=== PATIENT | male | born 1950 | race Caucasian/White ===

== ENCOUNTER 2017-12-12 10:38 | Inpatient (IN) | END 2017-12-13 12:20 | disposition home or self-care (01) | DRG 483 ==

== ENCOUNTER 2019-05-25 08:46 | Inpatient (IN) | payer BC, OTHER ==
[~2019-05-25] VITALS: Ht 190.5 cm; Wt 86.4 kg
[2019-05-25] VITALS (25 sets, daily range): BP systolic 105–125; BP diastolic 63–84; PULSE 70–93; RESP 13–19; Ht 190.5 cm; Wt 86.4 kg
[~2019-05-25 08:46] MED LIST: CLON-429 PO; DICL100G37 TOP; TAMS-14 PO
[2019-05-25] MEDS: LACTATED RINGER'S 1,000 ML IV SCH (10:25)
[2019-05-25] MEDS ORDERED: MEPERIDINE 25 MG INJ IV PRN (12:00)
[2019-05-25] MEDS ORDERED: OXYCODONE/ACETAMINOPHEN (5/325) TAB PO PRN (12:00)
[2019-05-25] MEDS ORDERED: HYDROmorphONE 1 MG/5 ML IV SYRINGE IV PRN ×3 (12:00)
[2019-05-25] MEDS ORDERED: DIPHENHYDRAMINE 50 MG INJ IV PRN ×2 (12:00→15:30)
[2019-05-25] MEDS ORDERED: ONDANSETRON 4 MG INJ IV PRN ×2 (12:00→15:30)
[2019-05-25] MEDS ORDERED: FENTAnyl 50 MCG/ML VIAL IV PRN ×3 (12:00)
[2019-05-25] MEDS ORDERED: PROCHLORPERAZINE 10 MG INJ IV PRN (12:00)
[2019-05-25] MEDS ORDERED: POLYMYXIN/BACITRACIN 1L IRRIG ONE (12:20)
[2019-05-25] MEDS ORDERED: HEPARIN 1000 UNITS/ML 10 ML INJ ONE (12:20)
[2019-05-25] MEDS ORDERED: CA CHLORIDE 10% 10 ML SYRINGE ONE (12:20)
[2019-05-25] MEDS ORDERED: BUPIVACAINE 0.5%/EPI (SDV) 30 ML INJ ONE (12:20)
[2019-05-25] MEDS ORDERED: THROMBIN 5000 UNIT (RECOTHROM) VIAL ONE ×2 (12:20→14:18)
[2019-05-25] MEDS ORDERED: CLINDAMYCIN 600 MG/D5W (PMX) 50 ML IVPB SCH ×2 (12:30→15:30)
[2019-05-25] MEDS ORDERED: PROPOFOL 20 ML ONE (12:33)
[2019-05-25] MEDS ORDERED: LIDOCAINE 2% (SDV) 5 ML INJ ONE (12:33)
[2019-05-25] MEDS ORDERED: SUCCINYLCHOLINE CHLORIDE 100 MG/5 ML SYG IV ONE (12:33)
[2019-05-25] MEDS ORDERED: ROCURONIUM 50 MG INJ ONE (12:33)
[2019-05-25] MEDS ORDERED: MIDAZOLAM 1 MG/ML 2 ML INJ ONE (12:34)
[2019-05-25] MEDS ORDERED: LACTATED RINGER'S 1,000 ML IV SCH (13:00)
[2019-05-25] MEDS ORDERED: CLINDAMYCIN 900 MG (PMX) 50 ML IVPB ONE (13:00)
[2019-05-25] MEDS ORDERED: SUGAMMADEX SODIUM 200 MG/2 ML VIAL IV ONE (14:19)
[2019-05-25] MEDS ORDERED: HYDROmorphONE 2 MG/ML SYG ONE (14:30)
[2019-05-25] MEDS ORDERED: DIPHENHYDRAMINE 25 MG CAP PO PRN (15:30)
[2019-05-25] MEDS ORDERED: CYCLOBENZAPRINE 10 MG TAB PO PRN (15:30)
[2019-05-25] MEDS ORDERED: CEPASTAT LOZENGE MT PRN (15:30)
[2019-05-25] MEDS ORDERED: NALOXONE (0.4 MG/ML) INJ IV PRN (15:30)
[2019-05-25] MEDS ORDERED: BISACODYL 10 MG SUPP PR PRN (15:30)
[2019-05-25] MEDS ORDERED: AL HYDROX/MG HYDROX/SIMETH 30 ML CUP PO PRN (15:30)
[2019-05-25] MEDS ORDERED: ACETAMINOPHEN 325 MG TAB PO PRN (15:30)
[2019-05-25] MEDS ORDERED: HYDROCODONE/APAP (10/325) TAB PO PRN (15:30)
[2019-05-25] MEDS: D5W-0.45 NACL + KCL 20 MEQ 1,000 ML IV SCH (16:47)
[2019-05-25] MEDS: HYDROmorphONE 0.5 MG/0.5 ML SYG IV PRN (17:09)
[2019-05-25] MEDS ORDERED: clonAZEPAM 0.5 MG TAB PO PRN (19:00)
[2019-05-25] MEDS ORDERED: TAMSULOSIN (SR) 0.4 MG CAP PO SCH (21:00)
[2019-05-25] MEDS: DOCUSATE SODIUM 100 MG CAP PO SCH (22:08)
[2019-05-25] MEDS: CLINDAMYCIN 600 MG/D5W (PMX) 50 ML IVPB SCH (22:09)
[2019-05-25] MEDS: DOXAZOSIN 2 MG TAB PO SCH (22:09)
[2019-05-25] MEDS: ONDANSETRON 4 MG INJ IV PRN (23:33)
[2019-05-26] MEDS: D5W-0.45 NACL + KCL 20 MEQ 1,000 ML IV SCH ×2 (01:23→06:19)
[2019-05-26] MEDS: HYDROmorphONE 0.5 MG/0.5 ML SYG IV PRN (02:34)
[2019-05-26 04:31] VITALS: BP 104/71; PULSE 99; RESP 18
[2019-05-26] MEDS: CLINDAMYCIN 600 MG/D5W (PMX) 50 ML IVPB SCH ×3 (04:47→21:49)
[2019-05-26] MEDS: ONDANSETRON 4 MG INJ IV PRN (06:20)
[2019-05-26] MEDS: HYDROCODONE/APAP (10/325) TAB PO PRN ×2 (06:20→14:38)
[2019-05-26 07:51] VITALS: BP 117/72; PULSE 78; RESP 18
[2019-05-26] MEDS: DOCUSATE SODIUM 100 MG CAP PO SCH ×2 (09:30→21:46)
[2019-05-26] MEDS: SOD CHLORIDE 0.9% 1,000 ML IV SCH ×2 (09:31→21:59)
[2019-05-26] MEDS: LACTATED RINGER'S 1,000 ML IV SCH (12:00)
[2019-05-26] MEDS: TAMSULOSIN (SR) 0.4 MG CAP PO SCH ×2 (12:13→21:45)
[2019-05-26 14:38] VITALS: BP 99/56; PULSE 92; RESP 16
[2019-05-26 19:53] VITALS: BP 98/60; PULSE 87; RESP 18
[2019-05-26] MEDS: DOXAZOSIN 2 MG TAB PO SCH (21:49)
[2019-05-27 01:59] VITALS: BP 112/69; PULSE 94; RESP 18
[2019-05-27] MEDS: CLINDAMYCIN 600 MG/D5W (PMX) 50 ML IVPB SCH ×2 (06:33→16:20)
[2019-05-27 08:47] VITALS: BP 107/66; PULSE 101; RESP 17
[2019-05-27] MEDS: DOCUSATE SODIUM 100 MG CAP PO SCH (09:20)
[2019-05-27] MEDS ORDERED: TAMSULOSIN (SR) 0.4 MG CAP PO ONE (09:30)
[2019-05-27] MEDS: HYDROCODONE/APAP (10/325) TAB PO PRN (11:05)
[2019-05-27] MEDS: SOD CHLORIDE 0.9% 1,000 ML IV SCH (11:10)
[2019-05-27] MEDS ORDERED: POTASSIUM PHOSPHATE 15 MM in SOD CHLORIDE 0.9% 250 ML IVPB ONE (12:00)
[2019-05-27] MEDS: LACTATED RINGER'S 1,000 ML IV SCH (12:00)
[2019-05-27 15:23] VITALS: BP 122/77; PULSE 88; RESP 18
[2019-05-27] MEDS ORDERED: TAMSULOSIN (SR) 0.4 MG CAP PO SCH ×2 (21:00)
== END 2019-05-27 19:44 | disposition home or self-care (01) | DRG 517 ==
LOC: REC 09:32 → MS1 16:39
PROVIDERS: ADMIT Specialist; ATTEND Specialist
PROC: 01NB0ZZ Release Lumbar Nerve, Open Approach (ICD-10-PCS; principal; 2019-05-25 12:00)
DX: M51.16 Intervertebral disc disorders with radiculopathy, lumbar region (principal); M48.061 Spinal stenosis, lumbar region without neurogenic claudication; R39.12 Poor urinary stream; N39.43 Post-void dribbling; R39.198 Other difficulties with micturition; R39.11 Hesitancy of micturition; N40.1 Benign prostatic hyperplasia with lower urinary tract symptoms; R39.14 Feeling of incomplete bladder emptying; R35.1 Nocturia; E83.39 Other disorders of phosphorus metabolism
CPT/HCPCS: 72110; 80048; 81001; 83735; 84100; 85025; 86999; 87086; 88304; 93005; 97110; 97116; 97161; 97530; J1170; J1644; J2250; J2405; J3010; J3480; J7030; J7050; J7120